=== PATIENT | male | born 1995 | race Two or more races ===

== ENCOUNTER 2024-07-02 09:16 | Emergency (ER) | payer MEDICAID, SELFPAY ==
[2024-07-02 09:17] VITALS: BMI 32.4
[2024-07-02 09:30] VITALS: BP 137/90; PULSE 83; RESP 20; TEMP 37; O2SAT 98
--- NOTE | 2024-07-02 09:32 | XR_ITS ---
Examination: CT brain head without contrast. 2-D sagittal coronal reconstructions Date and time of exam:July 02, 2024 1003 hrs. Indications: Onset generalized head pain today CTDI: vol (mGy):58.1 DLP: (mGycm):1225 Technique: Multiple CT axial sections of the brain have been obtained, 5 mm slice thickness. Contrast has not been administered. 2-D sagittal, coronal reconstructions have been obtained Low dose protocols were performed. One or more of the following dose reduction techniques were used; automated exposure control, adjustment of the mA and/or KV according to patient size, use of iterative reconstruction technique. Findings: No significant ventricular enlargement. Intra-axial or extra-axial hemorrhage density is not seen. No mass effect or midline shift Basal cisterns are not remarkable. Fourth ventricle is midline. Cranial vault intact. Impression: Negative for acute hemorrhage, mass effect or midline shift
[2024-07-02] MEDS: DiphenhydrAMINE 25 MG CAPSULE PO (09:36)
[2024-07-02] MEDS: METOCLOPRAMIDE 5 MG TABLET 10 MG PO (09:36)
[2024-07-02] MEDS: HYDROcodone/APAP 5/325 TABLET 1 TAB PO (09:37)
--- NOTE | 2024-07-02 10:32 | EDNOTE_ITS ---
<Statement entered by Crystal Medrano MD - 07/04/24 06:47> As co-signing physician, I was present and available for consult prn. I concur with the plan and care as documented by the midlevel provider. ED Headache RME/HPI General Chief Complaint: Headache Stated Complaint: HEADACHE FOR 2 DAYS Time Seen by Provider: 07/02/24 09:24 Arrival date/time: 07/02/24 09:16 28-year-old male presents to the emergency department complains of headache x 2 days patient reports no fever nausea or vomiting no neck pain no dizziness or weakness Limitations: no limitations Related Data Previous Rx's ?Medication ?Instructions ?Recorded acetaminophen-caffeine 500 mg-65 1 tab PO Q6H PRN pain #30 tabs 07/02/24 mg tablet (Excedrin Tension Headache) ibuprofen 800 mg tablet 800 mg PO TID PRN pain #30 tabs 07/02/24 Allergies Allergy/AdvReac Type Severity Reaction Status Date / Time No Known Allergies Allergy Verified 07/02/24 09:18 Review of Systems Review of Systems Systems Reviewed: All systems reviewed, normal except as documented Constitutional Constitutional: Reports system reviewed and no additional complaints, except as documented, Denies fever(s) and Reports headache(s) Eyes Eyes: Reports system reviewed and no additional complaints, except as documented and Denies blurry vision ENT Ears, Nose, Mouth, and Throat: Reports system reviewed and no additional complaints, except as documented, Reports headache(s), Denies nasal congestion and Denies nasal discharge Cardiovascular Cardiovascular: Reports system reviewed and no additional complaints, except as documented, Denies chest pain and Denies dyspnea Respiratory Respiratory: Reports system reviewed and no additional complaints, except as documented, Denies chest congestion, Denies cough and Denies dyspnea Gastrointestinal Gastrointestinal: Reports system reviewed and no additional complaints, except as documented and Denies abdominal pain Integumentary/Breasts Skin/Breast: Reports system reviewed and no additional complaints, except as documented and Denies rash Neurologic Neurologic: Reports system reviewed and no additional complaints, except as documented, Reports as per HPI and Reports headache(s) Past Medical History Past Medical History CARDIAC: Negative Congestive Heart Failure RESPIRATORY: Negative Chronic Obstructive Pulmonary Disease (COPD) GENITOURINARY: Negative Renal Disease ENDOCRINE: Negative Diabetes Mellitus Type 1 or Diabetes Mellitus Type 2 Social History SMOKING STATUS: Never smoker ED Exam General Limitations: Present no limitations General appearance: Present alert and in no apparent distress Head Head exam: Present atraumatic, normocephalic and normal inspection Eye Eye exam: Present normal appearance, PERRL and EOMI; Absent conjunctival injection ENT ENT exam: Present normal exam, normal oropharynx and mucous membranes moist Neck Neck exam: Present normal inspection, full ROM and trachea midline Chest Chest inspection: Present normal inspection and symmetric chest wall rise Respiratory Respiratory exam: Present normal lung sounds bilaterally Cardiovascular Cardiovascular exam: Present regular rate, normal rhythm and normal heart sounds Abdominal Exam Abdominal exam: Present soft and normal bowel sounds Extremities Exam Extremities exam: Present normal inspection and full ROM Back Exam Back exam: Present normal inspection and full ROM Neurological Exam Neurological exam: Present alert, oriented X3, CN II-XII intact, normal gait and reflexes normal; Absent motor sensory deficit Psychiatric Psychiatric exam: Present normal affect and normal mood Skin Skin exam: Present warm, dry, intact and normal color Course Quality Measures none Orders Category Date Time Status CT head/brain wo con Stat Exams 07/02/24 09:32 Completed DiphenhydrAMINE [Benadryl] Med 07/02/24 09:32 Discontinued 25 mg PO X1 ONE HYDROcodone*/APAP 5/325 [[place] 5/325] Med 07/02/24 09:32 Discontinued 1 tab PO X1 ONE Metoclopramide [Reglan] Med 07/02/24 09:32 Discontinued 10 mg PO X1 ONE Vital Signs Vital signs: Vital Signs Temperature 98.6 F 07/02/24 09:30 Pulse Rate 83 07/02/24 09:30 Respiratory Rate 20 07/02/24 09:30 Blood Pressure 137/90 H 07/02/24 09:30 Pulse Oximetry (%) 98 07/02/24 09:30 Oxygen Delivery Method Room Air 07/02/24 09:30 O2 saturation 98% room air within normal limits Headache MDM Narrative MDM Narrative:: 28-year-old male presents to the emergency department complains of headache x 2 days patient reports no fever nausea or vomiting no neck pain no dizziness or weakness CT scan of the head obtained no acute emergent findings noted Patient walks with steady gait has no abnormal neurological findings Patient discharged home in no distress to follow-up with primary care doctor in the next 24 to 48 hours and for any worsening symptoms to return to the ER immediately Patient data External records reviewed:: [facility] previous records Clinical information provided by:: patient Social determinants that could affect healthcare access:: none Patient has the following chronic illnesses:: None How is presenting disease/condition affected by chronic disease/condition?: no chronic disease Evaluation data The following diagnostics were reviewed and interpreted by me:: radiology exam(s) Lab and/or radiology exams considered but not ordered:: Radiology obtain Interpretation Summary: Reviewed by me Medications / Prescriptions Medications or Prescriptions considered but not ordered:: Given Medication administrations:: Medication Administration History Discontinued Medications Hydrocodone Bitart/Acetaminophen (Hydrocodone/Apap 5/325 Tablet) 1 tab PO X1 ONE Stop: 07/02/24 09:33 Last Admin: 07/02/24 09:37 Dose: 1 tab Documented By: GARCÍA Diphenhydramine HCl (Diphenhydramine 25 Mg Capsule) 25 mg PO X1 ONE Stop: 07/02/24 09:33 Last Admin: 07/02/24 09:36 Dose: 25 mg Documented By: GARCÍA Metoclopramide HCl (Metoclopramide 5 Mg Tablet) 10 mg PO X1 ONE Stop: 07/02/24 09:33 Last Admin: 07/02/24 09:36 Dose: 10 mg Documented By: GARCÍA Given Consultations Consultation(s) initiated? (list below): No Diagnosis Differential diagnosis headache: migraine, tension headache, subarachnoid hemorrhage and headache Most likely diagnosis given after review of the tests above:: Headache Admission Indicated Admission indicated?: not indicated Admission Request Was there a request for admission?: No Disposition Plan Disposition Plan: Discharge Discharge Attestation Discharge Attestation: The patient and all family members were given an opportunity to ask questions and understood the discharge instructions. Discharge instructions specifically effects, indications for sooner follow up or return to the emergency department, and the expected course of current diagnosis. Patient condition: Stable Discharge Plan Plan Patient Disposition: HOME (Self Care) Disposition Comment: Stable Prescriptions/Referrals Prescriptions/Med Rec: New Excedrin Tension Headache 500-65 mg tablet 1 tab PO Q6H PRN (Reason: pain) Qty: 30 0RF ibuprofen 800 mg tablet 800 mg PO TID PRN (Reason: pain) Qty: 30 0RF Referrals: Carley Sosa NP [Primary Care Provider] - 07/03/24 Problem List Clinical Impression: Headache Patient/Caregiver Discharge Instructions Education Materials: Self-Care for Headaches Additional Instructions: Please follow up with your primary care doctor in the next 24-48hrs for any worsening symptoms return here immediately Print Language: Moroccan Stand Alone Forms: [employer] Award Info., Work/School Release, Patient Portal Info Letter PA/RANGE MASTER Supervising Physician PA/RANGE MASTER Supervising Physician: Dr. Medrano
== END 2024-07-02 10:42 | disposition home or self-care (01) ==
PROVIDERS: Emergency Provider Emergency Medicine; PCP Licensed Vocational Nurse
DX: R51.9 Headache, unspecified (principal)
CPT/HCPCS: 70450; 99284; A9270